=== PATIENT | male | born 1945 | race Hispanic/Latino ===

== ENCOUNTER 2024-12-27 19:30 | Emergency (ER) | payer MEDICARE ==
[~2024-12-27] VITALS: Ht 160 cm; Wt 75.7 kg
[2024-12-27 19:32] VITALS: TEMP 98.2
[2024-12-27 20:00] LABS: BASOPHILS % 0.2 % (0.0-1.0); HEMATOCRIT 44.5 % (38.2-49.6); HEMOGLOBIN 15.5 g/dL (14.0-18.0); LYMPHOCYTES # (AUTO) 0.3 (1.0-3.2); LYMPHOCYTES % 2.1 % (18.0-39.1); MEAN CORPUSCULAR HEMOGLOBIN 30.6 pg (28-32); MEAN CORPUSCULAR HGB CONC 34.8 g/dL (31-35); MEAN CORPUSCULAR VOLUME 87.9 fL (81-99); MONOCYTES # (AUTO) 0.8 (0.2-0.8); MONOCYTES % 5.2 % (4.4-11.3); PLATELET COUNT 290 x10e3/uL (140-360); RED BLOOD COUNT 5.06 x10e6/uL (4.3-5.7); RED CELL DISTRIBUTION WIDTH 15.6 % (11.7-14.4); WHITE BLOOD COUNT 16.31 x10e3/uL (4.8-10.8)
[2024-12-27 20:22] LABS: ALBUMIN 2.9 g/dL (3.5-5.0); ALBUMIN/GLOBULIN RATIO 0.6 (0.8-2.0); ANION GAP 16.8 mmol/L (8-16); BILIRUBIN,TOTAL 7.1 mg/dL (0.2-1.2); CREATININE, SERUM 1.19 mg/dL (0.72-1.25); POTASSIUM 3.8 mmol/L (3.5-5.1); TOTAL PROTEIN 7.5 g/dL (6.5-8.1)
[2024-12-27 20:26] LABS: CLARITY,URINE SL CLOUDY (CLEAR); COLOR,URINE ORANGE (YELLOW); LEUKOCYTE ESTERASE ,URINE NEGATIVE (NEGATIVE); PH,URINE 5.5 (5 - 7)
[2024-12-27 20:27] LABS: BILIRUBIN,URINE LARGE (NEGATIVE); GLUCOSE, URINE 500 (NEGATIVE); KETONES,URINE 1+ (NEGATIVE); NITRITE,URINE NEGATIVE (NEGATIVE); PROTEIN,URINE DIPSTICK 2+ (NEGATIVE); TROPONIN I < 0.001 ng/mL (0-0.300); URINE UROBILINOGEN 1 mg/dL (0.2 - 1)
[2024-12-27] MEDS ORDERED: IOPAMIDOL 370 MG/ML 100 ML INFUS..BTL INJ ONE (20:29)
[2024-12-27 20:44] LABS: BACTERIA,URINE RARE /HPF; EPITHELIAL CELLS,URINE RARE /LPF; MUCUS,URINE MODERATE; RBC,URINE 0-5 /HPF (0-5); WBC,URINE (MAN) 0-5 /HPF (0-5)
[2024-12-27 21:43] LABS: INR 0.79; PARTIAL THROMBOPLASTIN TIME 29.4 seconds (23.8-35.5); PROTHROMBIN TIME 11.5 seconds (11.9-14.5)
[2024-12-27] MEDS: Morphine 4mg INJECTION 4 MG/ML INJ IV ONE (23:15)
[2024-12-27] MEDS: SODIUM CHLORIDE 0.9% 1000ML 1,000 ML IV SCH (23:15)
[2024-12-27] MEDS: ONDANSETRON HCL INJ 2MG/ML 2ML 2 MG/ML VIAL IV STA (23:15)
[2024-12-27 23:16] LABS: LIPASE 4095 U/L (8-78)
[2024-12-28 00:30] VITALS: PULSE 60; RESP 16
[2024-12-28 01:00] VITALS: BP 142/68; PULSE 74; RESP 15; TEMP 98.3; O2SAT 99
== END 2024-12-28 00:36 | disposition other institution (70) ==
LOC: ER 19:40
DX: R10.32 Left lower quadrant pain (principal); K83.8 Other specified diseases of biliary tract; K85.90 Acute pancreatitis without necrosis or infection, unspecified; R94.5 Abnormal results of liver function studies; K57.90 Diverticulosis of intestine, part unspecified, without perforation or abscess without bleeding; M48.56XA Collapsed vertebra, not elsewhere classified, lumbar region, initial encounter for fracture; I10 Essential (primary) hypertension; E11.65 Type 2 diabetes mellitus with hyperglycemia
CPT/HCPCS: 36415; 74177; 80053; 81001; 83690; 84484; 85025; 85610; 85730; 87040; 87071; 87186; 87205; 93005; 99284; J2270; J2405; J2470; J2543; J7030; Q9967